=== PATIENT | male | born 1995 | race Caucasian/White ===

== ENCOUNTER 2020-10-24 14:21 | Emergency (ER) | payer MEDICAID, SELFPAY ==
--- NOTE | ~2020-10-24 | XR_ITS ---
EXAMINATION: LEFT ANKLE CLINICAL INFORMATION: Injury COMPARISON: None TECHNIQUE: 3 views FINDINGS: No fracture. No dislocation. Ankle mortise is congruent. There is no soft tissue abnormality. XR/XR ankle LT 2V IMPRESSION: Normal left ankle.
--- NOTE | ~2020-10-24 | XR_ITS ---
EXAMINATION: LEFT ANKLE CLINICAL INFORMATION: Injury COMPARISON: None TECHNIQUE: 3 views FINDINGS: No fracture. No dislocation. Ankle mortise is congruent. There is no soft tissue abnormality. XR/XR foot LT min 3V IMPRESSION: Normal left ankle.
[2020-10-24 15:08] VITALS: BP 148/95; PULSE 62; RESP 8; TEMP 36.9; O2SAT 100; BMI 23.7
--- NOTE | 2020-10-24 16:36 | ED.LOWEXIN ---
HPI - Extremity Injury (Lower) General Chief Complaint: Extremity Injury, Lower Stated Complaint: left leg pain Time Seen by Provider: 10/24/20 16:36 Source: patient Mode of arrival: ambulatory Limitations: no limitations History of Present Illness HPI Narrative: 25 y/o male presenting to the ER for evaluation of left ankle pain after he hurt it yesterday while playing basketball. He reports he was going up for a layup and was taken out, falling onto his left side and his left ankle got pinned under his leg. He denies any knee or hip pain, just his lateral ankle and top of his foot. He is able to walk. He has not taken any medications for the pain. No weakness, numbnes or tingling in his left leg or foot. MD complaint: ankle injury Onset (ago): day(s) (1) Injury: Left: ankle and foot Type of Injury: blunt and inversion Place: street/outdoors Severity: moderate Relieving factors: immobilization and rest Exacerbating factors: weight bearing, movement and palpation Context: jumping Associated symptoms: swelling and ambulatory Other symptoms: none Related Data Previous Rx's Medication Instructions Recorded ibuprofen 600 mg tablet 600 mg PO Q8H PRN #20 tab 10/24/20 Allergies Allergy/AdvReac Type Severity Reaction Status Date / Time No Known Allergies Allergy Verified 10/24/20 15:08 Review of Systems Review of Systems: Constitutional: No Fever, No Chills Musculoskeletal: + joint pain, No Myalgias Skin: No Skin Lesions, No rash Neuro: No Weakness, No Numbness Heme/Lymph: No Bruising PMFSH Past Medical History Attestation statement: The following information was validated with the patient. Social History Social History Advance Directives: No Advance Directives Information Provided: Yes Physical Exam Vital Signs: Vital Signs: Last Vital Signs Temp 98.5 F 10/24/20 15:08 Pulse 62 10/24/20 15:08 Resp 8 L 10/24/20 15:08 BP 148/95 H 10/24/20 15:08 Pulse Ox 100 10/24/20 15:08 Body Mass Index 23.7 Appearance: Alert. Oriented X3. No acute distress. HEENT: normal inspection CVS: Normal heart rate and rhythm. Pulses normal. Respiratory: No respiratory distress. Skin: Skin warm and dry. Normal skin color. Normal skin turgor. No rashes. Extremities: left ankle and foot with normal inspection, no appreciated swelling. mild tenderness to the calcaneus and lateral ankle. normal ROM of the ankle. no point tenderness Neuro: Oriented X 3. No motor deficit. No sensory deficit. normal gait walking in Course Course Course Narrative: 25 y/o male presenting with left ankle pain after a basketball injury yesterday. He ambulated in with a normal gait. His x-ray was negative. He is reporting pain with ambulation and asking for crutches and a work note. He most likely has a mild sprain and is stable for d/c home with supportive care. Discharge Plan Discharge Clinical Impression: Ankle sprain and strain Patient Disposition: Home, Self-Care Instructions: Ankle Sprain (ED) Additional Instructions: Your x-ray today was normal. Rest you ankle and elevate your foot when possible. Recommend APOORVA wrap for support and compression. Use ice several times per day for the next 48 hours. You may bear weight as tolerated. If pain is too severe, use crutches until better. Take Motrin and/or Tylenol as needed for pain. Follow up with your doctor as needed. Prescriptions: New ibuprofen 600 mg tablet 600 mg PO Q8H PRN (Reason: pain) Qty: 20 RF: 0 Stand Alone Forms: Work/School Release Interventions: ED Discharge Assessment Last Done: 10/24/20 16:42 Discharge Date/Time: 10/24/20 16:45
--- NOTE | 2020-10-24 16:38 | PC.NURSE ---
PT AMBULATORY INTO [facility]. GAIT STEADY. NEUROS INTACT. [facility]. EVALUATED BY KENDRA ERVIN DIRECTLY UPON ARRIVAL INTO [facility]. PLAN IS FOR DC HOME AFTER APOORVA WRAP AND CRUTCH TEACHING. PT AGREEABLE TO PLAN. NO ACUTE DISTRESS NOTED.
== END 2020-10-24 16:45 | disposition home or self-care (01) ==
PROVIDERS: Emergency Provider Emergency Medicine
DX: S93.402A Sprain of unspecified ligament of left ankle, initial encounter (principal); S96.912A Strain of unspecified muscle and tendon at ankle and foot level, left foot, initial encounter; X50.1XXA Overexertion from prolonged static or awkward postures, initial encounter; Y93.67 Activity, basketball; Y92.310 Basketball court as the place of occurrence of the external cause; Y99.9 Unspecified external cause status
CPT/HCPCS: 73600; 73630; 99282; 99283

== ENCOUNTER 2022-07-31 08:48 | Emergency (ER) | payer MEDICAID, SELFPAY ==
--- NOTE | ~2022-07-31 | XR_ITS ---
EXAMINATION: XR WRIST, LEFT CLINICAL INFORMATION: Softball swelling. COMPARISON: None available. TECHNIQUE: Four views of the left wrist. FINDINGS: The bones and soft tissues are normal. No fracture. Alignment is anatomic with normal joint spaces. No erosions or abnormal soft tissue calcifications. XR/XR wrist LT min 3V IMPRESSION: Unremarkable left wrist.
[2022-07-31 09:00] VITALS: BP 146/108; PULSE 65; RESP 18; TEMP 36.6; O2SAT 98; BMI 22.6
--- NOTE | 2022-07-31 10:00 | ED.EXTPRO ---
HPI - Extremity Problem General Chief complaint: Extremity Injury, Upper Stated complaint: L Wrist Injury 07/30/22 Time Seen by Provider: 07/31/22 09:19 History of Present Illness HPI Narrative: patient complain of left wrist pain after swinging a bat in a baseball game yesterday and his wrist bent and he felt a sharp pain and has had pain since yesterday when he moves his rest He did not fall there is no other injury no other complaint no numbness weakness or tingling denies any significant swelling no other extremity pains Related Data Previous Rx's Medication Instructions Recorded ibuprofen 600 mg tablet 600 mg PO Q8H PRN pain #20 tabs 10/24/20 ibuprofen 600 mg tablet 600 mg PO Q6H PRN pain #20 tabs 07/31/22 Allergies Allergy/AdvReac Type Severity Reaction Status Date / Time No Known Allergies Allergy Verified 07/31/22 09:00 [facility] Past Medical History Source: nursing notes reviewed Social History Social History Advance Directives: No Advance Directives Information Provided: Yes Physical Exam Vital Signs: Vital Signs: Last Vital Signs Temp 98 F 07/31/22 09:00 Pulse 65 07/31/22 09:00 Resp 18 07/31/22 09:00 BP 146/108 H 07/31/22 09:00 Pulse Ox 98 07/31/22 09:00 O2 Del Method Room Air 07/31/22 09:00 BMI result Body Mass Index 22.6 general appearance no acute distress Head is normocephalic atraumatic Neck is supple Back full range motion Left wrist has tenderness in the volar / lateral aspect of the anterior wrist, there is no significant swelling there is no focal bony tenderness there is no snuffbox tenderness no ecchymosis, neurovascular intact distal with normal sensation, no evidence of any tendon deficit on flexion or extension Course Course Course Narrative: x-ray of left wrist was negative patient is given a Velcro splint for his left wrist, diagnosed with wrist sprain and will follow with orthopedist if needed Discharge Plan Discharge Clinical Impression: Sprain and strain of wrist Patient Disposition: Home, Self-Care Additional Instructions: x-ray did not show any broken bone in her left wrist This is likely a sprained wrist and usually this will get better on its own If not improved by next week follow with orthopedist for further evaluation Return any time any concerns Prescriptions: New ibuprofen 600 mg tablet 600 mg PO Q6H PRN (Reason: pain) Qty: 20 0RF No Action ibuprofen 600 mg tablet 600 mg PO Q8H PRN (Reason: pain) Qty: 20 0RF Referrals: Jemal Gupta MD [Physician] - ( left wrist injury /sprain) Stand Alone Forms: Work/School Release
== END 2022-07-31 10:11 | disposition home or self-care (01) ==
PROVIDERS: Emergency Provider Emergency Medicine Emergency Medical Services
DX: S63.502A Unspecified sprain of left wrist, initial encounter (principal); S66.912A Strain of unspecified muscle, fascia and tendon at wrist and hand level, left hand, initial encounter; X50.1XXA Overexertion from prolonged static or awkward postures, initial encounter; Y93.64 Activity, baseball; Y92.320 Baseball field as the place of occurrence of the external cause; Y99.9 Unspecified external cause status
CPT/HCPCS: 73110; 99283